=== PATIENT | female | born 1965 | race Caucasian/White ===

== ENCOUNTER 2016-04-21 14:32 | Emergency (ER) | payer MEDICAID ==
[2016-04-21 14:44] VITALS: BP 163/74; PULSE 94; RESP 18; TEMP 97.7; O2SAT 97
--- NOTE | 2016-04-21 14:59 | UCPHY ---
H & P Patient Type: Established Chief Complaint Nursing Narrative: sinus drng/facial pain/[place] HPI/ROS: HPI CHIEF COMPLAINT: Sinus pain, congestion HISTORY OF PRESENT ILLNESS: This patient very pleasant 51-year-old female, significant past medical history for bipolar disorder, presents to the urgent care with 5 days of worsening sore throat, bilateral ear pain, sinus congestion , sinus pain nasal congestion and runny nose. Does endorse a dry cough no productive cough no fever. Denies nausea vomiting diarrhea. Denies chest pain or shortness of breath. Past Medical History: Depression, bipolar disorder Past Surgical History: Denies recent surgical history Social History: Denies use of drugs alcohol tobacco products Family History: Noncontributory ROS REVIEW OF SYSTEMS: A comprehensive 10 point review of systems is otherwise negative aside from elements mentioned in the history of present illness. Exam Constitutional appears well nontoxic, triage nursing summary reviewed, vital signs reviewed, awake/alert. Eyes normal conjunctivae and sclera, EOMI, PERRLA. HENT nasal turbinates are inflamed, there is sinus tenderness to palpation over the maxillary sinus and nasal sinus cavities, normal inspection, atraumatic , moist mucus membranes, no epistaxis, neck supple/ no meningismus, no raccoon eyes. Respiratory clear to auscultation bilaterally, normal breath sounds, no respiratory distress, no wheezing. Cardiovascular rate normal, regular rhythm, no murmur, no edema, distal pulses normal. Gastrointestinal soft, non-tender, no rebound, no guarding, normal bowel sounds, no distension, no pulsatile mass. Genitourinary no CVA tenderness. Musculoskeletal no midline vertebral tenderness, full range of motion, no calf swelling, no tenderness of extremities, no meningismus, good pulses, neurovascularly intact. Skin pink, warm, & dry, no rash, skin atraumatic. Neurologic awake, alert and oriented x 3, AAOx3, moves all 4 extremities equally, motor intact, sensory intact, CN II-XII intact, normal cerebellar, normal vision, normal speech. Psychiatric normal mood/affect. Heme/Lymph/Immune no lymphadenopathy. Differential Diagnosis: Includes but is not limited to in a particular order: Acute sinusitis, viral syndrome, upper respiratory tract infection, viral pharyngitis, strep pharyngitis Medical Decision Making: patient here in the Urgent Care appears well nontoxic in no acute distress appears to have an acute sinusitis. Patient be treated with guaifenesin decongestion and azithromycin. Ibuprofen for pain control. She understands drink lots of fluids return to the ER urgent care if she has any worsening symptoms questions or concerns. Source: Patient - Personal History LMP (Females 10-55): Post Menopausal Current Tetanus/Diphtheria Vaccine: Yes Tetanus Vaccine Date: < 10 years - Medical/Surgical History Hx Asthma: No Hx Chronic Respiratory Disease: No Hx Diabetes: No Hx Cardiac Disease: No Hx Renal Disease: No Hx Cirrhosis: No Hx Alcoholism: No Hx HIV/AIDS: No Hx Splenectomy or Spleen Trauma: No Other PMH: bipolar, ECT, ADHD, C/S, BACK SURG - Family History Significant Family History: No pertinent family hx - Social History Smoking Status: Never smoked Constitutional: Initial Vital Signs Temperature (C) 36.5 C 04/21/16 14:42 Heart Rate 94 04/21/16 14:42 Respiratory Rate 18 04/21/16 14:42 Blood Pressure 163/74 H 04/21/16 14:42 O2 Sat (%) 97 04/21/16 14:42 O2 Delivery Mode Room Air Allergies/Adverse Reactions: No Known Allergies Allergy (Verified 04/21/16 14:38) Home Medications: Medication Instructions Recorded Prozac 20 MG (RX) 07/03/15 Temazepam 07/03/15 VYVANSE 07/03/15 [place] Carbonate 10/28/15 AZITHROMYCIN [Z-PACK] 250 mg PO DAILY #6 tab 04/21/16 Guaifenesin [Guaifenesin ER] 600 mg PO BID #14 tab.er.12h 04/21/16 Ibuprofen [Motrin (*)] 800 mg PO Q6-8PRN #7 tab 04/21/16 Seroquel 04/21/16 Departure - Departure Disposition: Home, Routine, Self-Care Clinical Impression: Sinusitis Qualifiers: Sinusitis location: frontal Chronicity: acute Recurrence: non-recurrent Qualified Code(s): J01.10 - Acute frontal sinusitis, unspecified Condition: Good Instructions: Sinusitis (ED) Additional Instructions: 1. Drink lots of fluids stay well-hydrated Referrals: NONE *PRIMARY CARE P,. [Primary Care Provider] - As per Instructions Prescriptions: AZITHROMYCIN [Z-PACK] 250 mg PO DAILY #6 tab Guaifenesin [Guaifenesin ER] 600 mg PO BID #14 tab.er.12h Ibuprofen [Motrin (*)] 800 mg PO Q6-8PRN #7 tab - PQRS PQRS Measurement: n/a
== END 2016-04-21 15:14 | disposition home or self-care (01) ==
LOC: CED 14:32
DX: J01.10 Acute frontal sinusitis, unspecified (principal)
CPT/HCPCS: 99214-PO; G0463-PO

== ENCOUNTER → 2016-05-28 | Outpatient (CLI) | payer MEDICAID | LOC: CIMAGING 16:46 | PROVIDERS: ATTEND Family Medicine | DX: E05.90 Thyrotoxicosis, unspecified without thyrotoxic crisis or storm (principal) | CPT/HCPCS: 76536-PO ==

== ENCOUNTER 2016-06-26 07:44 | Day surgery (SDC) | payer MEDICAID ==
[2016-06-26] MEDS ORDERED: DIAZEPAM 5 MG TAB PO ONE (07:47)
[2016-06-26] MEDS ORDERED: ASPIRIN EC 325 MG TAB PO ONE ×2 (07:47→08:09)
[2016-06-26] MEDS ORDERED: diphenhydrAMINE 25 MG CAP PO ONE ×2 (07:47→08:09)
[2016-06-26] MEDS ORDERED: NS 1,000 ML IV ONE (07:47)
[2016-06-26] MEDS ORDERED: FAMOTIDINE 20 MG TAB PO ONE (07:47)
--- NOTE | 2016-06-26 08:04 | CPEKG ---
Heart Rate: 79 RR Interval: 759 P-R Interval: 156 QRSD Interval: 84 QT Interval: 396 QTC Interval: 455 P [place]: 54 QRS [place]: 30 T Wave [place]: 22 EKG Severity - NORMAL ECG - EKG Impression: SINUS RHYTHM Electronically Signed By: Edenilson Lockwood 26-Jun-2016 16:26:49
[2016-06-26] MEDS ORDERED: DIAZEPAM 5 MG TAB ONE (08:09)
[2016-06-26] MEDS ORDERED: FAMOTIDINE 20 MG TAB ONE (08:09)
[2016-06-26 08:41] LABS: % IMMATURE GRANULYOCYTES 0.3 % (0.0-1.1); ABSOLUTE IMMATURE GRANULOCYTES 0.02 10^3/uL (0.00-0.10); ADD DIFF? NO; ADD MORPH? NO; ADD SCAN? NO; ATYPICAL LYMPHOCYTE FLAG 0 (0-99); FRAGMENT RBC FLAG 0 (0-99); HEMATOCRIT 40.6 % (38.0-47.0); HEMOGLOBIN 13.6 g/dL (12.6-16.3); LEFT SHIFT FLG 0 (0-99); LIPEMIA HEMOLYSIS FLAG 80 (0-99); MEAN CELL HEMOGLOBIN 27.1 pg (27.9-34.1); MEAN CELL HEMOGLOBIN CONCENTR. 33.5 g/dL (32.4-36.7); MEAN PLATELET VOLUME 10.1 fL (8.7-11.7); PLATELET CLUMPS FLAG 0 (0-99); PLATELET COUNT 247 10^3/uL (150-400); RED BLOOD CELL COUNT 5.01 10^6/uL (4.18-5.33); RED CELL DISTRIBUTION WIDTH 18.2 % (11.5-15.2)
[2016-06-26 08:49] LABS: INR 1.06 (0.83-1.16); PROTIME(PATIENT) 13.7 SEC (12.0-15.0)
[2016-06-26] MEDS ORDERED: fentaNYL 100 MCG/2 ML INJ ONE ×2 (09:00→09:55)
[2016-06-26] MEDS ORDERED: LIDOCAINE 1% 30 ML SDV ONE (09:00)
[2016-06-26] MEDS ORDERED: MIDAZOLAM 2 MG/2 ML VIAL ONE ×2 (09:01→09:52)
[2016-06-26] MEDS ORDERED: IOPAMIDOL (ISOVUE-370) 150 ML BTL IV ONE (09:01)
[2016-06-26 09:27] LABS: ANION GAP 10 mEq/L (8-16); CALCIUM 9.2 mg/dL (8.5-10.4); CARBON DIOXIDE 25 mEq/l (22-31); CHLORIDE 105 mEq/L (97-110); CHOLESTEROL 180 mg/dL (140-200); CREATININE 0.8 mg/dL (0.6-1.0); GLOMERULAR FILTRATION RATE > 60; GLUCOSE 100 mg/dL (70-100); HIGH DENSITY LIPOPROTEIN 60 mg/dL (40-95); LOW DENSITY LIPOPROTEIN 102 mg/dL (70-100); NON-HIGH DENSITY LIPOPROTEIN 120 mg/dL (90-129); POTASSIUM 4.3 mEq/L (3.5-5.2); SODIUM 140 mEq/L (134-144); TRIGLYCERIDE 93 mg/dL (35-135); VERY LOW DENSITY LIPOPROTEINS 18 mg/dL (8-25)
[2016-06-26] MEDS ORDERED: ATROPINE SULFATE 1 MG/10 ML SYR IVP PRN (12:22)
[2016-06-26] MEDS ORDERED: OXYCODONE/APAP 5/325 TAB PO PRN (12:22)
[2016-06-26] MEDS ORDERED: HYDROCODONE/APAP 5/325 TAB PO PRN (12:22)
[2016-06-26] MEDS ORDERED: NITROGLYCERIN 0.4 MG BTL SL PRN (12:22)
[2016-06-26] MEDS ORDERED: ONDANSETRON 4 MG/2 ML VIAL IVP PRN (12:22)
--- NOTE | 2016-06-26 12:28 | PDDXCAT ---
Diagnostic Cath Note - . Date: 06/26/16 Barrel Rifler Button: Fabián Indication: CCC Class III and IV angina on medical treatment - Procedure Access: right groin Procedure: left heart catheterization, coronary angiography, left ventriculogram - Materials Left Heart Cath size: 6F Left Heart Cath materials: standard multipack (JL4, JR4, pigtail) - Findings-Left Heart Catheterization LM: short with bifurcation into the LAD and LCX. no luminal irregularities were noted LAD: Medium sized vessel with small diagonals (two). no luminal irregularities were noted. LCX: Large caliber vessel with four principal obtuse marginals (second of which had a branch). No luminal irregularites were noted. Distal tortuosity to all. Dominant vessel. RCA: Diminutive vessel. No luminal irregularities were noted EDP: 28 mm Hg LVEF: 65% Wall motion: normal Complications: none Estimated blood loss: <50ml Closure method: Angioseal Assessment: 51 y/o female with ongoing complaints of chest pains. No critical CAD was noted. Normal left ventricular systolic ejection fraction and wall motion were noted. Angioseal closure. Plan: Outpatient follow up has been scheduled. Patient to have 30 day event monitor sent to the house. Would have patient seen in 7-10 days for follow up post angiogram. Intervention: none
== END 2016-06-26 14:20 | disposition home or self-care (01) ==
LOC: FCATH 07:44
PROVIDERS: ATTEND Internal Medicine Cardiovascular Disease
DX: R07.9 Chest pain, unspecified (principal); R94.39 Abnormal result of other cardiovascular function study; R00.2 Palpitations; R55 Syncope and collapse; R06.09 Other forms of dyspnea; R42 Dizziness and giddiness; F31.9 Bipolar disorder, unspecified; F41.9 Anxiety disorder, unspecified; F43.10 Post-traumatic stress disorder, unspecified
CPT/HCPCS: C1760; J1642; J1644; J2250; J3010; Q9967

== ENCOUNTER → 2016-07-14 | Outpatient (CLI) | payer MEDICAID ==
[~2016-07-14] MED LIST: IOPAMIDOL (ISOVUE 370) 100 ML BTL IV ONE
== END ==
LOC: FIMAGING 15:39
PROVIDERS: ATTEND Nurse Practitioner Family
DX: R07.9 Chest pain, unspecified (principal); R06.02 Shortness of breath
CPT/HCPCS: Q9967

== ENCOUNTER → 2017-02-01 | Outpatient (CLI) | payer OTHER, MEDICAID | LOC: SBRMNEURO 21:00 | PROVIDERS: ATTEND Student in an Organized Health Care Education/Training Program | DX: G47.33 Obstructive sleep apnea (adult) (pediatric) (principal) ==

== ENCOUNTER → 2018-06-27 | Outpatient (CLI) | payer OTHER, MEDICAID | LOC: BHLMT 14:00 | PROVIDERS: ATTEND Internal Medicine Cardiovascular Disease | DX: R07.9 Chest pain, unspecified (principal); R00.2 Palpitations; I51.9 Heart disease, unspecified | CPT/HCPCS: 93017-PO ==

== ENCOUNTER → 2018-07-08 | Outpatient (CLI) | payer OTHER, MEDICAID | LOC: BHFA 13:30 | PROVIDERS: ATTEND Internal Medicine Cardiovascular Disease | DX: R07.9 Chest pain, unspecified (principal); R94.30 Abnormal result of cardiovascular function study, unspecified | CPT/HCPCS: 78452; 93017; A9500 ==